=== PATIENT | male | born 1995 | race Caucasian/White ===

== ENCOUNTER 2019-05-20 22:32 | Emergency (ER) | payer SELFPAY ==
[~2019-05-20] VITALS: Ht 175.3 cm; Wt 104.3 kg
[2019-05-20] MEDS ORDERED: IV NORMAL SALINE 1000ML BAG 1,000 ML IV ONE (23:00)
[2019-05-20 23:11] LABS: BASO # 0.1 x10^3/uL (0.0-0.2); BASO % 1 % (0-3); EOS # 0.1 x10^3/uL (0.0-0.7); EOS % 1 % (0-3); HEMATOCRIT 53.7 % (39.0-53.0); HEMOGLOBIN 18.8 g/dL (13.0-17.5); LYMPH # 1.9 x10^3/uL (1.0-4.8); LYMPH % 14 % (24-48); MEAN CORPUSCULAR HEMOGLOBIN 30 pg (25-35); MEAN CORPUSCULAR HGB CONC 35 g/dL (31-37); MEAN CORPUSCULAR VOLUME 87 fL (79-100); MONO # 0.8 x10^3/uL (0.0-1.1); MONO % 6 % (0-9); NEUT # 10.5 x10^3/uL (1.8-7.7); NEUT % 79 % (31-73); PLATELET COUNT 275 x10^3/uL (140-400); RED BLOOD COUNT 6.19 x10^6/uL (4.30-5.70); RED CELL DISTRIBUTION WIDTH 13.2 % (11.5-14.5); WHITE BLOOD COUNT 13.3 x10^3/uL (4.0-11.0)
[2019-05-20 23:13] LABS: BILIRUBIN,URINE NEGATIVE (NEG); CLARITY,URINE CLEAR; COLOR,URINE YELLOW; NITRITE,URINE NEGATIVE (NEG); PROTEIN,URINE NEGATIVE (NEG-TRACE)
[2019-05-20 23:18] LABS: BACTERIA,URINE 0 /HPF (0-FEW); RBC,URINE 0 /HPF (0-2)
[2019-05-20 23:19] LABS: HYALINE CASTS, URINE MODERATE /HPF; SQUAMOUS EPITHELIAL CELL,UR OCC /LPF
[2019-05-20 23:20] LABS: AMPHETAMINE/METHAMPHETAMINE NEG (NEG); BARBITURATES NEG (NEG); BENZODIAZEPINES NEG (NEG); CANNABINOIDS NEG (NEG); COCAINE NEG (NEG); METHADONE NEG (NEG); OPIATES NEG (NEG); PHENCYCLIDINE NEG (NEG)
[2019-05-20 23:20] LABS: CALCIUM 9.6 mg/dL (8.5-10.1); CREATININE 1.4 mg/dL (0.7-1.3); GFR 62.8
[2019-05-20 23:25] LABS: ALBUMIN 4.7 g/dL (3.4-5.0); ALBUMIN/GLOBULIN RATIO 1.3 (1.0-1.7); MAGNESIUM 2.1 mg/dL (1.8-2.4); TOTAL BILIRUBIN 0.6 mg/dL (0.2-1.0); TOTAL PROTEIN 8.4 g/dL (6.4-8.2)
--- NOTE | 2019-05-20 23:27 | RAD ---
EXAM: CT HEAD WITHOUT CONTRAST. HISTORY: Fall, syncope. TECHNIQUE: Computed tomography of the head was performed without intravenous contrast. COMPARISON: None. FINDINGS: There is no intracranial hemorrhage. Pham-white differentiation is preserved. The ventricles are normal in size and position. The visualized paranasal sinuses appear clear. The orbits are unremarkable. The temporal bones are unremarkable. The calvarium reveals no suspicious lesions. A left occipital scalp lipoma measures 1.9 x 0.9 cm. Scattered prominent occipital lymph nodes are also noted. IMPRESSION: 1. No acute intracranial findings. 2. 1.9 cm left occipital scalp lipoma. 3. Scattered occipital lymph nodes are likely reactive. Correlate clinically. *One or more of the following individualized dose reduction techniques were utilized for this examination: 1. Automated exposure control. 2. Adjustment of the mA and/or kV according to patient size. 3. Use of iterative reconstruction technique. Electronically signed by: Kim Jain MD (05/20/2019 11:24 PM) [facility]
[2019-05-20 23:48] VITALS: BP 140/79
[2019-05-21] MEDS ORDERED: ONDA4TAB7 PO (00:05)
[2019-05-21] MEDS ORDERED: NAPR-683 PO (00:05)
--- NOTE | 2019-05-21 00:06 | PHYS DOC ---
Past Medical History Past Medical History: LA Past Surgical History: No Surgical History Alcohol Use: Rarely Drug Use: None Adult General Chief Complaint Chief Complaint: LOSS OF CONSCIOUSNESS HPI HPI Patient is a 23 year old male who presents with complaining of passing out. Patient states he was at [employer] and went to the bathroom and suddenly felt dizzy and cold and passed out for a short time. Patient states he was nauseous and vomited after episodes of syncope and right now has headache. Patient denies history of the same problem, using drugs or alcohol, chest pain, focal neuro deficit, urinary symptoms, fever and chills. Review of Systems Review of Systems Constitutional: Denies fever or chills [] Eyes: Denies change in visual acuity, redness, or eye pain [] HENT: Denies nasal congestion or sore throat [] Respiratory: Denies cough or shortness of breath [] Cardiovascular: No additional information not addressed in HPI [] GI: Denies abdominal pain, nausea, vomiting, bloody stools or diarrhea [] : Denies dysuria or hematuria [] Musculoskeletal: Denies back pain or joint pain [] Integument: Denies rash or skin lesions [] Neurologic: Reports headache, denies focal weakness or sensory changes [] Endocrine: Denies polyuria or polydipsia [] All other systems were reviewed and found to be within normal limits, except as documented in this note. Current Medications Current Medications Current Medications Medications (Trade) Dose Ordered Sig/Yari Start Time Stop Time Status Last Admin Dose Admin Ketorolac Tromethamine (Toradol 30mg Vial) 30 mg 1X ONCE 05/21/19 00:15 05/21/19 00:16 DC 05/21/19 00:19 30 MG Sodium Chloride 1,000 ml @ 1,000 mls/hr 1X ONCE 05/20/19 23:00 05/20/19 23:59 DC 05/20/19 23:05 1,000 MLS/HR Allergies Allergies Allergies Coded Allergies Type Severity Reaction Last Updated Verified No Known Drug Allergies 05/20/19 No Physical Exam Physical Exam Constitutional: Well developed, well nourished, mild distress, non-toxic appearance. [] HENT: Normocephalic, atraumatic. Eyes: PERRLA, EOMI, conjunctiva normal, no discharge. [] Neck: Normal range of motion, no tenderness, supple, no stridor. [] Cardiovascular:Heart rate regular rhythm, no murmur [] Lungs & Thorax: Bilateral breath sounds clear to auscultation [] Abdomen: Bowel sounds normal, soft, no tenderness, no masses, no pulsatile masses. [] Skin: Warm, dry, no erythema, no rash. [] Back: No tenderness, no CVA tenderness. [] Extremities: No tenderness, no cyanosis, no clubbing, ROM intact, no edema. [] Neurologic: Alert and oriented X 3, no focal deficits noted. [] Psychologic: Affect normal, judgement normal, mood normal. [] Current Patient Data Vital Signs Vital Signs Date Time Temp Pulse Resp B/P (MAP) Pulse Ox O2 Delivery O2 Flow Rate FiO2 05/20/19 23:48 80 14 98 05/20/19 22:48 98.2 165/91 (115) Room Air 98.2 Lab Values Laboratory Tests Test 05/20/19 22:53 05/20/19 23:00 White Blood Count 13.3 x10^3/uL (4.0-11.0) H Red Blood Count 6.19 x10^6/uL (4.30-5.70) H Hemoglobin 18.8 g/dL (13.0-17.5) H Hematocrit 53.7 % (39.0-53.0) H Mean Corpuscular Volume 87 fL (79-100) Mean Corpuscular Hemoglobin 30 pg (25-35) Mean Corpuscular Hemoglobin Concent 35 g/dL (31-37) Red Cell Distribution Width 13.2 % (11.5-14.5) Platelet Count 275 x10^3/uL (140-400) Neutrophils (%) (Auto) 79 % (31-73) H Lymphocytes (%) (Auto) 14 % (24-48) L Monocytes (%) (Auto) 6 % (0-9) Eosinophils (%) (Auto) 1 % (0-3) Basophils (%) (Auto) 1 % (0-3) Neutrophils # (Auto) 10.5 x10^3/uL (1.8-7.7) H Lymphocytes # (Auto) 1.9 x10^3/uL (1.0-4.8) Monocytes # (Auto) 0.8 x10^3/uL (0.0-1.1) Eosinophils # (Auto) 0.1 x10^3/uL (0.0-0.7) Basophils # (Auto) 0.1 x10^3/uL (0.0-0.2) Sodium Level 139 mmol/L (136-145) Potassium Level 4.0 mmol/L (3.5-5.1) Chloride Level 100 mmol/L (98-107) Carbon Dioxide Level 28 mmol/L (21-32) Anion Gap 11 (6-14) Blood Urea Nitrogen 16 mg/dL (8-26) Creatinine 1.4 mg/dL (0.7-1.3) H Estimated GFR (Cockcroft-Gault) 62.8 BUN/Creatinine Ratio 11 (6-20) Glucose Level 125 mg/dL (70-99) H Calcium Level 9.6 mg/dL (8.5-10.1) Magnesium Level 2.1 mg/dL (1.8-2.4) Total Bilirubin 0.6 mg/dL (0.2-1.0) Aspartate Amino Transferase (AST) 25 U/L (15-37) Alanine Aminotransferase (ALT) 68 U/L (16-63) H Alkaline Phosphatase 68 U/L (46-116) Creatine Kinase 120 U/L (39-308) Creatine Kinase MB (Mass) 0.9 ng/mL (0.0-3.6) Creatine Kinase MB Relative Index 0.8 % (0-4) Troponin I Quantitative < 0.017 ng/mL (0.000-0.055) Total Protein 8.4 g/dL (6.4-8.2) H Albumin 4.7 g/dL (3.4-5.0) Albumin/Globulin Ratio 1.3 (1.0-1.7) Ethyl Alcohol Level < 3 mg/dL (0-10) Urine Collection Type Unknown Urine Color Yellow Urine Clarity Clear Urine pH 6.0 Urine Specific [place] 1.025 Urine Protein Negative mg/dL (NEG-TRACE) Urine Glucose (UA) Negative mg/dL (NEG) Urine Ketones (Stick) Negative mg/dL (NEG) Urine Blood Negative (NEG) Urine Nitrite Negative (NEG) Urine Bilirubin Negative (NEG) Urine Urobilinogen Dipstick 1.0 mg/dL (0.2 mg/dL) Urine Leukocyte Esterase Negative (NEG) Urine RBC 0 /HPF (0-2) Urine WBC 1-4 /HPF (0-4) Urine Squamous Epithelial Cells Occ /LPF Urine Bacteria 0 /HPF (0-FEW) Urine Hyaline Casts Moderate /HPF Urine Mucus Marked /LPF Urine Opiates Screen Neg (NEG) Urine Methadone Screen Neg (NEG) Urine Barbiturates Neg (NEG) Urine Phencyclidine Screen Neg (NEG) Urine Amphetamine/Methamphetamine Neg (NEG) Urine Benzodiazepines Screen Neg (NEG) Urine Cocaine Screen Neg (NEG) Urine Cannabinoids Screen Neg (NEG) Urine Ethyl Alcohol Neg (NEG) Laboratory Tests 05/20/19 22:53 Laboratory Tests 05/20/19 22:53 EKG EKG EKG interpreted by me. EKG at 2258 showed normal sinus rhythm at rate of 89, nonspecific T-wave abnormality, nonspecific ST and T-wave abnormalities, no acute ST and T-wave elevation. Radiology/Procedures Radiology/Procedures [][facility] [address] [place] [address] IMAGING REPORT Signed PATIENT: MAYE BHAKTA ACCOUNT: [id number] : 1995 LOCATION: ER AGE: 23 SEX: M EXAM STATUS: REG ER ORD. PHYSICIAN: SHAQ MONTES DE OCA MD REASON: syncope and fall PROCEDURE: CT HEAD WO CONTRAST EXAM: CT HEAD WITHOUT CONTRAST. HISTORY: Fall, syncope. TECHNIQUE: Computed tomography of the head was performed without intravenous contrast. COMPARISON: None. FINDINGS: There is no intracranial hemorrhage. Pham-white differentiation is preserved. The ventricles are normal in size and position. The visualized paranasal sinuses appear clear. The orbits are unremarkable. The temporal bones are unremarkable. The calvarium reveals no suspicious lesions. A left occipital scalp lipoma measures 1.9 x 0.9 cm. Scattered prominent occipital lymph nodes are also noted. IMPRESSION: 1. No acute intracranial findings. 2. 1.9 cm left occipital scalp lipoma. 3. Scattered occipital lymph nodes are likely reactive. Correlate clinically. *One or more of the following individualized dose reduction techniques were utilized for this examination: 1. Automated exposure control. 2. Adjustment of the mA and/or kV according to patient size. 3. Use of iterative reconstruction technique. Electronically signed by: Kim Jain MD (05/20/2019 11:24 PM) [facility] DICTATED and SIGNED BY: BHARAT JAIN MD DATE: 05/20/196 Course & Med Decision Making Course & Med Decision Making Pertinent Labs and Imaging studies reviewed. (See chart for details) Evaluation of patient in ER showed 23-year-old male patient with a syncopal episode after using hookah. Patient had unremarkable physical exam and negative orthostatic vitals. Labs showed dehydration. Patient treated with IV fluid and felt better. Plan discharge patient home to diagnose of syncope and dehydration. Dragon Disclaimer Dragon Disclaimer This electronic medical record was generated, in whole or in part, using a voice recognition dictation system. Departure Departure Impression: Primary Impression: Vasovagal syncope Additional Impressions: Dehydration Nausea and vomiting Headache Disposition: HOME, SELF-CARE (ERASED) Condition: IMPROVED Referrals: FLYNN TALBERT MD (PCP) Patient Instructions: Dehydration, Adult, Syncope Additional Instructions: Drink plenty of liquids Follow-up with your primary care physician in 3-5 days Return to ER if not getting better Scripts Ondansetron Hcl (ZOFRAN) 4 Mg Tablet 1 TAB PO PRN Q6-8HRS for nausea, #12 TAB Prov: SHAQ MONTES DE OCA MD 05/21/19 Naproxen (NAPROSYN) 500 Mg Tablet 1 TAB PO BID for pain, #20 TAB Prov: SHAQ MONTES DE OCA MD 05/21/19 Problem Qualifiers Additional Impressions: Nausea and vomiting Vomiting type: unspecified Vomiting Intractability: non-intractable Qualified Codes: R11.2 - Nausea with vomiting, unspecified SHAQ MONTES DE OCA MD May 21, 2019 00:06
[2019-05-21] MEDS ORDERED: KETOROLAC 30 MG/ML VIAL. IV ONE (00:15)
--- NOTE | 2019-05-21 08:26 | EKG ---
[facility] [address] [place] [address] Test Date: 2019-05-20 Test Time: 22:58:57 Pat Name: MAYE BHAKTA Department: Room: Gender: M Infant Childcare Provider: : 1995 Requested By: SHAQ MONTES DE OCA Order Number: [id number] Reading MD: Johnathan Lilly MD Measurements Intervals [place]comb Rate: 88 P: 54 DC: 146 QRS: 75 QRSD: 86 T: 21 QT: 348 QTc: 424 Interpretive Statements SINUS RHYTHM NON SPECIFIC T ABNORMALITY Electronically Signed On 05-22-2019 15:52:29 CDT by Johnathan Lilly MD
== END 2019-05-21 00:16 | disposition home or self-care (01) ==
LOC: ER 22:32
DX: R11.2 Nausea with vomiting, unspecified (principal); R42 Dizziness and giddiness; R55 Syncope and collapse; I25.2 Old myocardial infarction
CPT/HCPCS: 36415; 70450; 80053; 80307; 81001; 82553; 83735; 84484; 85025; 93005; 96361; 96374; 99285; G0480; J1885; J7030